=== PATIENT | male | born 1985 | race Caucasian/White ===

== ENCOUNTER → 2018-06-09 | Outpatient (CLI) | payer OTHER ==
--- NOTE | 2018-06-09 12:47 | DIAGNOSTIC IMAGING REPORT ---
R KNEE 4 OR MORE CLINICAL HISTORY: RECENT FALL SINCE HAVING RIGHT KNEE SURGERY trauma. Pain. COMPARISON: 05/02/2018. DISCUSSION: Operative changes consistent with an opening wedge osteotomy of the right knee. All hardware appears to be intact. There is no evidence for well-defined posttraumatic fracture. There is no evidence for soft tissue swelling. IMPRESSION: Anatomic alignment post opening wedge osteotomy right knee. All hardware is intact. No acute posttraumatic abnormality. The above report was generated using voice recognition software. It may contain grammatical, syntax or spelling errors. Electronically signed by: Arben Sibley M.D. 06/09/2018 12:46 PM Dictated Date/Time: 06/09/2018 12:44 PM
== END | disposition home or self-care (01) ==
LOC: C.RDSM 12:11
PROVIDERS: ATTEND Physician Assistant
DX: M25.561 Pain in right knee (principal)